=== PATIENT | male | born 1955 | race Two or more races ===

== ENCOUNTER 2020-09-16 11:37 | Outpatient (CLI) | payer OTHER | END 2020-09-16 11:48 | disposition home or self-care (01) | LOC: RAD 11:37 | PROVIDERS: ATTEND Orthopaedic Surgery | DX: M25.561 Pain in right knee (principal) ==

== ENCOUNTER 2020-10-16 08:21 | Outpatient (CLI) | payer OTHER ==
[2020-10-16] MEDS ORDERED: TRICOR48 MG PO (14:01)
[2020-10-16] MEDS ORDERED: COZAAR100 MG PO (14:01)
[2020-10-16] MEDS ORDERED: LIPITOR40 M1 PO (14:01)
== END 2020-10-16 08:39 | disposition home or self-care (01) ==
LOC: LAB 08:21
PROVIDERS: ATTEND Orthopaedic Surgery
DX: D64.89 Other specified anemias (principal); Z76.89 Persons encountering health services in other specified circumstances; I10 Essential (primary) hypertension; I49.8 Other specified cardiac arrhythmias; E88.89 Other specified metabolic disorders; D68.8 Other specified coagulation defects; N39.0 Urinary tract infection, site not specified; Z22.322 Carrier or suspected carrier of Methicillin resistant Staphylococcus aureus; J84.10 Pulmonary fibrosis, unspecified

== ENCOUNTER 2020-10-27 06:45 | Day surgery (SDC) | payer OTHER ==
[~2020-10-27 06:45] MED LIST: COZAAR100 MG PO; LIPITOR40 M1 PO; TRICOR48 MG PO
== END 2020-10-27 16:25 | disposition home or self-care (01) ==
LOC: CIR.AMB 06:45
PROVIDERS: ATTEND Orthopaedic Surgery
DX: M23.321 Other meniscus derangements, posterior horn of medial meniscus, right knee (principal); Z20.828 Contact with and (suspected) exposure to other viral communicable diseases; M94.261 Chondromalacia, right knee; M65.861 Other synovitis and tenosynovitis, right lower leg